=== PATIENT | male | born 1985 | race African-American/Black ===

== ENCOUNTER 2018-09-26 17:28 | Emergency (ER) | payer SELFPAY ==
[~2018-09-26] VITALS: Ht 165.1 cm; Wt 93.2 kg
[2018-09-26 17:32] VITALS: Ht 165.1 cm; Wt 93.2 kg
[2018-09-26] MEDS ORDERED: ROBAXIN500 MG PO (18:22)
[2018-09-26] MEDS ORDERED: TORADOL10 MG PO (18:22)
[2018-09-26 18:53] VITALS: BP 117/73
== END 2018-09-26 18:54 | disposition home or self-care (01) ==
LOC: D.ER 17:28
DX: S76.012A Strain of muscle, fascia and tendon of left hip, initial encounter (principal); X58.XXXA Exposure to other specified factors, initial encounter; Y93.89 Activity, other specified; Y92.9 Unspecified place or not applicable